=== PATIENT | male | born 1985 | race African-American/Black ===

== ENCOUNTER 2018-06-25 07:24 | Emergency (ER) | payer MEDICARE ==
[~2018-06-25] VITALS: Ht 180.3 cm; Wt 131.5 kg
--- NOTE | 2018-06-25 08:28 | PHYS DOC ---
Past Medical History Past Medical History: No Pertinent History Past Surgical History: No Surgical History Additional Information: 09/16 PPD. Alcohol Use: None Drug Use: None Adult General Chief Complaint Chief Complaint: SEXUALLY TRANSMITTED DISEASE HPI HPI Patient is a 33 year old male who presents with spacer to a reported sexual transmitted disease. The patient states that his last sexual partner called him and told him that she is positive for gonorrhea. He denies any current symptoms but is requesting prophylactic treatment and testing. Review of Systems Review of Systems Constitutional: Denies fever or chills [] Eyes: Denies change in visual acuity, redness, or eye pain [] HENT: Denies nasal congestion or sore throat [] Respiratory: Denies cough or shortness of breath [] Cardiovascular: No additional information not addressed in HPI [] GI: Denies abdominal pain, nausea, vomiting, bloody stools or diarrhea [] : See history of present illness Musculoskeletal: Denies back pain or joint pain [] Integument: Denies rash or skin lesions [] Neurologic: Denies headache, focal weakness or sensory changes [] Endocrine: Denies polyuria or polydipsia [] All other systems were reviewed and found to be within normal limits, except as documented in this note. Current Medications Current Medications Current Medications Medications (Trade) Dose Ordered Sig/Gavi Start Time Stop Time Status Last Admin Dose Admin Azithromycin (Zithromax) 1,000 mg 1X ONCE 06/25/18 08:30 10 08:31 UNV Ceftriaxone Sodium (Rocephin Im) 250 mg 1X ONCE 06/25/18 08:30 06/25/18 08:31 UNV Physical Exam Physical Exam Constitutional: Well developed, well nourished, no acute distress, non-toxic appearance. [] Cardiovascular:Heart rate regular rhythm, no murmur [] Lungs & Thorax: Bilateral breath sounds clear to auscultation [] Abdomen: Bowel sounds normal, soft, no tenderness, no masses, no pulsatile masses. [] Skin: Warm, dry, no erythema, no rash. [] Back: No tenderness, no CVA tenderness. [] Neurologic: Alert and oriented X 3, normal motor function, normal sensory function, no focal deficits noted. [] Psychologic: Affect normal, judgement normal, mood normal. [] Current Patient Data Vital Signs Vital Signs Date Time Temp Pulse Resp B/P (MAP) Pulse Ox O2 Delivery O2 Flow Rate FiO2 06/25/18 07:35 98.1 74 16 138/83 (101) 98 Room Air 98.1 EKG EKG [] Radiology/Procedures Radiology/Procedures [] Course & Med Decision Making Course & Med Decision Making Pertinent Labs and Imaging studies reviewed. (See chart for details) The patient was given Rocephin and Zithromax in the emergency department. He has been educated to refrain from sexual activity for 2 weeks to allow time for the antibiotics to work. He is in agreement with this plan. He has been informed that we will only call him if positive results. Dragon Disclaimer Dragon Disclaimer This electronic medical record was generated, in whole or in part, using a voice recognition dictation system. Departure Departure Impression: Primary Impression: Exposure to sexually transmitted disease (STD) Disposition: 01 HOME, SELF-CARE Condition: STABLE Referrals: NO PCP (PCP) Patient Instructions: Sexually Transmitted Disease Additional Instructions: You were prophylactically treated in the emergency department. Refrain from sexual activity for 2 weeks to allow time for the antibiotics to work. We will call you if you had a positive culture. Follow-up with your primary care provider as needed. ANDIE DALOTN APRN Jun 25, 2018 08:28
[2018-06-25] MEDS ORDERED: cefTRIAXone IM 250 MG VIAL IM ONE (08:30)
[2018-06-25] MEDS ORDERED: AZITHROMYCIN 250 MG TABLET. PO ONE (08:30)
[2018-06-25 08:35] VITALS: BP 115/71
== END 2018-06-25 09:10 | disposition home or self-care (01) ==
LOC: ER 07:24
DX: Z20.2 Contact with and (suspected) exposure to infections with a predominantly sexual mode of transmission (principal); F17.200 Nicotine dependence, unspecified, uncomplicated
CPT/HCPCS: 87491; 87591; 96372; 99284; J0696; Q0144

== ENCOUNTER 2019-12-03 11:06 | Emergency (ER) | payer MEDICARE ==
[~2019-12-03] VITALS: Ht 180.3 cm; Wt 139.0 kg
--- NOTE | 2019-12-03 11:33 | PHYS DOC ---
Past Medical History Past Medical History: No Pertinent History Past Surgical History: No Surgical History Smoking Status: Current Every Day Smoker Alcohol Use: None Drug Use: None Adult General Chief Complaint Chief Complaint: DIARRHEA HPI HPI Patient is a 34 year old [male who presents with diarrhea. Patient states he had had diarrhea on and off for the last 3 to 4 days, however is not had any episodes of diarrhea for the last 2 days. States he has had bowel movements which have been normal since this time. States no recent fever. States no recent illness, no cough, no nausea, no vomiting, no diarrhea. States he has had some increased urinary frequency. States when he takes increased fluid with some vitamin C, he has no urinary symptoms, however when he is not taking this, he has increased urinary frequency and discomfort. Patient states he does not know if he has a STD or not, states he has not been tested for a long time, but he is not sure that he does not. States no penile discharge. Review of Systems Review of Systems Constitutional: Denies fever or chills [] Eyes: Denies change in visual acuity, redness, or eye pain [] HENT: Denies nasal congestion or sore throat [] Respiratory: Denies cough or shortness of breath [] Cardiovascular: No additional information not addressed in HPI [] GI: Denies abdominal pain, nausea, vomiting, bloody stools. States he has had some diarrhea over the last couple days, however none for the last 2 days. [] : Denies dysuria or hematuria, does state he has some burning with urination, denies any testicular discomfort, testicular swelling [] Musculoskeletal: Denies back pain or joint pain [] Integument: Denies rash or skin lesions [] Neurologic: Denies headache, focal weakness or sensory changes [] Endocrine: Denies polyuria or polydipsia [] All other systems were reviewed and found to be within normal limits, except as documented in this note. Allergies Allergies Allergies Coded Allergies Type Severity Reaction Last Updated Verified No Known Drug Allergies 06/25/18 No Physical Exam Physical Exam Constitutional: Well developed, well nourished, no acute distress, non-toxic appearance. [] HENT: Normocephalic, atraumatic, bilateral external ears normal, oropharynx moist, no oral exudates, nose normal. [] Eyes: PERRLA, EOMI, conjunctiva normal, no discharge. [] Neck: Normal range of motion, no tenderness, supple, no stridor. [] Cardiovascular:Heart rate regular rhythm, no murmur [] Lungs & Thorax: Bilateral breath sounds clear to auscultation [] Abdomen: Bowel sounds normal, soft, no tenderness, no masses, no pulsatile masses. [] Skin: Warm, dry, no erythema, no rash. [] Back: No tenderness, no CVA tenderness. [] Extremities: No tenderness, no cyanosis, no clubbing, ROM intact, no edema. [] Neurologic: Alert and oriented X 3, normal motor function, normal sensory function, no focal deficits noted. [] Psychologic: Affect normal, judgement normal, mood normal. [] Current Patient Data Vital Signs Vital Signs Date Time Temp Pulse Resp B/P (MAP) Pulse Ox O2 Delivery O2 Flow Rate FiO2 12/03/19 11:31 98.2 94 11 136/95 (109) 98 Room Air 98.2 Lab Values Laboratory Tests Test 12/03/19 11:30 Urine Collection Type Void Urine Color Yellow Urine Clarity Clear Urine pH 6.0 (<5.0-8.0) Urine Specific [place] 1.020 (1.000-1.030) Urine Protein Negative mg/dL (NEG-TRACE) Urine Glucose (UA) Negative mg/dL (NEG) Urine Ketones (Stick) Negative mg/dL (NEG) Urine Blood Negative (NEG) Urine Nitrite Negative (NEG) Urine Bilirubin Negative (NEG) Urine Urobilinogen Dipstick 0.2 mg/dL (0.2 mg/dL) Urine Leukocyte Esterase Moderate (NEG) Urine RBC Occ /HPF (0-2) Urine WBC >40 /HPF (0-4) Urine Squamous Epithelial Cells Few /LPF Urine Bacteria Few /HPF (0-FEW) Urine Mucus Marked /LPF EKG EKG [] Radiology/Procedures Radiology/Procedures [] Course & Med Decision Making Course & Med Decision Making Pertinent Labs and Imaging studies reviewed. (See chart for details) [Discussed urine results with patient, with signs of infection. Advised patient his discomfort may also be from an STD, however testing is pending at this time. Patient reports he now has insurance, and will start to look for a primary care provider advised patient on safer sexual practices to ensure no spreading of an STD if he does have one. Advised patient to remain hydrated, patient reports he frequently just drinks Sprite, or osorio prieto, does not drink less water. Advised patient to increase his water intake. Will provide antibiotics. ] Vivek Disclaimer Vivek Disclaimer This electronic medical record was generated, in whole or in part, using a voice recognition dictation system. Departure Departure Impression: Primary Impression: Bacteriuria with pyuria Additional Impressions: Urinary frequency Concern about sexually transmitted disease in male without diagnosis Disposition: HOME, SELF-CARE Condition: STABLE Referrals: NO PCP (PCP) Patient Instructions: Diet for Diarrhea, Adult, Urinary Frequency Additional Instructions: As we discussed, your STD test from your urine will take a couple days to come back. If you do not get a phone call, it was negative. In the meantime, consider using condoms to prevent any chance of an infection spreading if you do have one. Try to increase your fluid intake, water is much better than Sprite or osorio prieto as these actually can cause increased dehydration. You can consider probiotics to help with your diarrhea if you get it again. Try to follow-up with a primary care provider when you are able. Scripts Doxycycline Hyclate (DOXYCYCLINE HYCLATE) 100 Mg Tablet 100 MG PO BID for 10 Days, #20 TAB Prov: RM GR APRN 12/03/19 Problem Qualifiers RM GR APRN Dec 03, 2019 11:33
[2019-12-03 11:41] LABS: BILIRUBIN,URINE NEGATIVE (NEG); CLARITY,URINE CLEAR; COLOR,URINE YELLOW; NITRITE,URINE NEGATIVE (NEG); PROTEIN,URINE NEGATIVE (NEG-TRACE); UROBILINOGEN,URINE 0.2 mg/dL (0.2 mg/dL)
[2019-12-03 11:47] LABS: SQUAMOUS EPITHELIAL CELL,UR FEW /LPF; WBC,URINE >40 /HPF (0-4)
[2019-12-03 11:48] LABS: BACTERIA,URINE FEW /HPF (0-FEW)
[2019-12-03 11:49] LABS: RBC,URINE OCC /HPF (0-2)
[2019-12-03] MEDS ORDERED: DOXY100T PO (12:18)
[2019-12-03 12:30] VITALS: BP 139/89
== END 2019-12-03 12:38 | disposition home or self-care (01) ==
LOC: ER 11:06
DX: R82.71 Bacteriuria (principal); R19.7 Diarrhea, unspecified; F17.200 Nicotine dependence, unspecified, uncomplicated; Z20.2 Contact with and (suspected) exposure to infections with a predominantly sexual mode of transmission
CPT/HCPCS: 81001; 87086; 87491; 87591; 99283